=== PATIENT | female | born 1975 | race Hispanic/Latino ===

== ENCOUNTER 2017-01-14 19:56 | Emergency (ER) | payer OTHER ==
[2017-01-14 20:14] VITALS: BP 136/92; PULSE 92; RESP 18; TEMP 97.9; O2SAT 99
--- NOTE | 2017-01-14 20:34 | ED PDOC ---
HPI: General Adult Time Seen by Provider: 01/14/17 20:18 Chief Complaint (Nursing): Abnormal Skin Integrity Chief Complaint (Provider): Abnormal Skin Integrity History Per: Patient History/Exam Limitations: no limitations Current Symptoms Are (Timing): Still Present Additional Complaint(s): 41 y/o female with unknown tetanus presents to the ED with a cut in the medial right hand. Patient reports the she is on amox for dental procedure and Cipro for urinary tract infection. Denies any further medical complaints. Past Medical History Reviewed: Historical Data, Nursing Documentation, Vital Signs Vital Signs: Last Vital Signs Temp 97.9 F 01/14/17 20:11 Pulse 92 H 01/14/17 20:11 Resp 18 01/14/17 20:11 BP 136/92 H 01/14/17 20:11 Pulse Ox 99 01/14/17 21:03 - Medical History PMH: No Chronic Diseases - Surgical History Surgical History: No Surg Hx - Family History Family History: States: Unknown Family Hx - Social History Current smoker - smoking cessation education provided: No Alcohol: None Drugs: Denies - Allergies Allergies/Adverse Reactions: Allergies Allergy/AdvReac Type Severity Reaction Status Date / Time No Known Allergies Allergy Verified 01/14/17 20:11 Review of Systems ROS Statement: Except As Marked, All Systems Reviewed And Found Negative (As per HPI, otherwise negative) Constitutional: Negative for: Fever, Chills Skin: Positive for: Other (Laceration on right medial hand) Physical Exam - Reviewed Nursing Documentation Reviewed: Yes Vital Signs Reviewed: Yes - Physical Exam Appears: Positive for: Well, Non-toxic, No Acute Distress Head Exam: Positive for: ATRAUMATIC, NORMAL INSPECTION, NORMOCEPHALIC Skin: Positive for: Normal Color (0.5 cm laceration on right medial hand and no active bleeding) Eye Exam: Positive for: Normal appearance ENT: Positive for: Normal ENT Inspection Respiratory: Negative for: Accessory Muscle Use Back: Positive for: Normal Inspection Extremity: Positive for: Normal ROM, Other (Sensation intact ). Negative for: Deformity, Swelling Neurologic/Psych: Positive for: Alert, Oriented - ECG O2 Sat by Pulse Oximetry: 99 (RA) Pulse Ox Interpretation: Normal Medical Decision Making Medical Decision Making: Time: 19:46 Plan: Tetanus/reduced dipht 0.5ml IM Time: 19:50 Wound was irrigated with saline. Antibiotic ointment and dressing applie. Scribe Attestation: Documented by Maurizio Duffy acting as a scribe for Trinidad Patel MD. Scribkai Attestation: All medical record entries made by the Scribe were at my direction and personally dictated by me. I have reviewed the chart and agree that the record accurately reflects my personal performance of the history, physical exam, medical decision making, and the department course for this patient. I have also personally directed, reviewed, and agree with the discharge instructions and disposition. Disposition - Clinical Impression Clinical Impression: Laceration of hand, Tetanus toxoid vaccination administered at current visit - Disposition Disposition: Routine/Home Disposition Time: 20:55 Condition: STABLE Instructions: Laceration Without Closure (ED) Forms: [employer] (Turkish)
== END 2017-01-14 21:09 | disposition home or self-care (01) ==
LOC: H.ER 19:56
DX: S61.216A Laceration without foreign body of right little finger without damage to nail, initial encounter (principal); W25.XXXA Contact with sharp glass, initial encounter; Y92.89 Other specified places as the place of occurrence of the external cause